=== PATIENT | male | born 1995 | race Caucasian/White ===

== ENCOUNTER 2021-09-13 14:19 | Emergency (ER) | payer BC ==
--- OUTSIDE RECORDS SUMMARY | 2021-09-13 14:22 | XMS REPORT | Continuity of Care Document ---
:1995 Author Organization [facility] t Address [address] [place] [address] Dr. Ferrell [address] [place] [id number] Care Team Providers Name Role Phone JACQUELINE Attending Clinician Unavailable Problems This patient has no known problems. Allergies, Adverse Reactions, Alerts This patient has no known allergies or adverse reactions. Medications This patient has no known medications. Procedures This patient has no known procedures. Encounters Start End Encounter Admission Attending Care Care Encounter Source Date/Time Date/Time Type Type Clinicians Facility Department ID 2021-09-12 2021-09-13 Emergency JACQUELINE [facility] [id number] [address] 00:00:00 00:00:00 [place] Results This patient has no known results.
[2021-09-13 19:47] LABS: Absolute Lymphocytes (CBC) 1.5 K/uL (0.7-4.9); Basophils % 0.4 % (0-1.3); Hematocrit 48.7 % (39.6-49.0); Lymphocytes % 42.7 % (15.3-44.8); MPV 8.4 fL (7.6-11.3); RBC Red Blood Cell Count 5.49 M/uL (4.33-5.43)
[2021-09-13 19:51] LABS: Protime INR 1.09
[2021-09-13] MEDS ORDERED: KETOROLAC 30 MG/ML INJ ONE (19:51)
[2021-09-13 20:23] LABS: ALT/SGPT 39 U/L (12-78); AST/SGOT 26 U/L (15-37); Albumin 3.9 g/dL (3.4-5.0); Alkaline Phosphatase 55 U/L (45-117); BUN Blood Urea Nitrogen 9 mg/dL (7-18); Bicarbonate 29 mmol/L (21-32); Bilirubin Direct < 0.1 mg/dL (0-0.2); Bilirubin Total 0.4 mg/dL (0.2-1.0); Glucose Level 99 mg/dL (74-106); Potassium 3.6 mmol/L (3.5-5.1); Protein, Total 8.5 g/dL (6.4-8.2); Sodium Level 139 mmol/L (136-145)
--- NOTE | 2021-09-13 20:35 | RAD REPORT ---
EXAM DESCRIPTION: CT - Head Brain Wo Cont - 09/13/2021 7:11 pm CLINICAL HISTORY: HEADACHE Headache, drowsiness COMPARISON: <Comparisons> TECHNIQUE: All CT scans are performed using dose optimization technique as appropriate and may inclu de automated exposure control or mA/KV adjustment according to patient size. FINDINGS: No intracranial hemorrhage, hydrocephalus or extra-axial fluid collection.No areas of brai n edema or evidence of midline shift. The paranasal sinuses and mastoids are clear. The calvarium is intact. IMPRESSION: No acute intracranial abnormality.
[2021-09-13 20:46] LABS: Urine Blood Negative (Negative); Urine Glucose Negative (Negative); Urine Protein Negative (Negative)
[2021-09-13 20:57] LABS: Barbiturates NEGATIVE (NEGATIVE); Benzodiazepines NEGATIVE (NEGATIVE); Cocaine NEGATIVE (NEGATIVE); METHAMPHETAM NEGATIVE (NEGATIVE); Methadone NEGATIVE (NEGATIVE); Opiates NEGATIVE (NEGATIVE); Phencyclidine NEGATIVE (NEGATIVE); THC Cannibis NEGATIVE (NEGATIVE)
--- NOTE | 2021-09-13 21:27 | ER ---
Nurse's Notes [facility] Name: Darin Ferris Age: 26 yrs Sex: Male : 1995 Arrival Date: 09/13/2021 Time: 14:21 Bed 15 Private MD: Diagnosis: Anxiety disorder, unspecified Presentation: 09/13 14:42 Chief complaint: Patient states: "I tested positive for COVID 2 days ago at [facility] urgent care. As far as symptoms I feel fine, but I don't know if I am having mental side effects or what, like anxiety. It seems to happen between 8pm and midnight. It seems to be triggered by electronics. I'll get really jittery and then my thoughts start racing and I can't sleep. [facility] and they told me it might be like meningitis, so I went to [facility] yesterday and they did lab work and an EKG and told me it looked okay and sent me home to follow up with neurology, but I can't get in until next week sometime. I do have some neck stiffness and twinges down my back at times. I just can't control my thoughts." Denies SI/ HI. Coronavirus screen: Client denies travel out of the [place] in the last 14 days. Ebola Screen: Patient denies exposure to infectious person. Patient denies travel to an Ebola-affected area in the 21 days before illness onset. Initial Sepsis Screen: Does the patient meet any 2 criteria? No. Patient's initial sepsis screen is negative. Does the patient have a suspected source of infection? No. Patient's initial sepsis screen is negative. Risk Assessment: Do you want to hurt yourself or someone else? Patient reports no desire to harm self or others. Onset of symptoms was September 11, 2021. 14:42 Method Of Arrival: Ambulatory 14:42 Acuity: ROSALINDA 3 ss Triage Assessment: 19:00 General: Appears in no apparent distress. Behavior is calm, cooperative. Pain: Denies mr2 pain. Historical: - Allergies: 14:48 No Known Allergies; ss - Home Meds: 14:48 None [Active]; ss - PMHx: 14:48 None; ss - PSHx: 14:48 R thumb; ss - Immunization history:: Client reports having NOT received the Covid vaccine. - Social history:: Smoking status: Reported history of juuling and/or vaping. Patient/guardian denies using tobacco, the patient reports quitting approximately 3 years ago, Patient/guardian denies using street drugs. Screenin:32 Abuse screen: Denies threats or abuse. Nutritional screening: No deficits noted. tw2 Tuberculosis screening: No symptoms or risk factors identified. Fall Risk None identified. Assessment: 18:37 Reassessment: provider DELORES Arango at bedside at this time. tw2 Vital Signs: 14:42 BP 121 / 80; Pulse 87; Resp 16; Temp 98.5(TE); Pulse Ox 100% on R/A; Weight 108.86 kg; ss Height 6 ft. 2 in. (187.96 cm); Pain 2/10; 18:41 BP 126 / 88; Pulse 81; Resp 17; Pulse Ox 100% on R/A; tw2 21:00 BP 118 / 85; Pulse 80; Resp 17; Temp 98.4; Pulse Ox 99% on R/A; mr2 14:42 Body Mass Index 30.81 (108.86 kg, 187.96 cm) ss ED Course: 14:21 Patient arrived in ED. ds1 14:48 Triage completed. ss 14:48 Arm band placed on right wrist. ss 16:19 Bed in low position. Call light in reach. Adult w/ patient. tw2 16:20 Darrell David PA is PHCP. cp 16:20 Wendy Wall MD is Attending Physician. cp 18:36 Darrell David PA is PHCP. cp 18:36 Wendy Wall MD is Attending Physician. cp 19:02 Darrell Landeros MD is Attending Physician. cp 19:12 CT Head Brain wo Cont In Process Unspecified. EDMS 19:41 Acetaminophen Sent. dh3 19:41 Basic Metabolic Panel Sent. dh3 19:41 CBC with Diff Sent. dh3 19:41 ETOH Level Sent. dh3 19:41 Hepatic Function Sent. dh3 19:41 PT-INR Sent. dh3 19:41 Ptt, Activated Sent. dh3 19:41 Salicylate Sent. dh3 21:00 No provider procedures requiring assistance completed. IV discontinued. mr2 21:34 Jaden Russell, RN is Primary Nurse. mr2 Administered Medications: No medications were administered Outcome: 21:26 Discharge ordered by . cp 21:35 Discharged to home ambulatory. mr2 21:35 Condition: stable 21:35 Discharge instructions given to patient. 22:08 Patient left the ED. mr2 Signatures: Dispatcher [employer] EDME Emily Neumann ds1 Lyla Renae, RN RN Darrell David PA PA Mariana Duenas RN RN [facility] Irene Cruz [facility] Jaden Russell, RN RN mr2
--- NOTE | 2021-09-13 21:27 | EDPHYS ---
Physician Documentation [facility] Name: Darin Ferris Age: 26 yrs Sex: Male : 1995 Arrival Date: 09/13/2021 Time: 14:21 Bed 15 Private MD: ED Physician Darrell Landeros HPI: 09/13 19:05 This 26 yrs old Male presents to ER via Ambulatory with complaints of Mental Evaluation.cp 19:05 Patient is a 26-year-old male who presents to the emergency department with concern for cp anxiety. Patient reports he tested positive for Covid 2 days ago has been having feelings of jitteriness, difficulty sleep, and feeling like his mind is racing. He is not having much upper respiratory type symptoms such as cough fever shortness of breath, but is concerned as this is due to the recent Covid infection. Patient reports over the last 2 nights she is gone to [facility] to be evaluated and had some blood work and released to go home. Patient report denies any suicidal homicidal ideation and is accompanied by his who is concerned but states patient has not voiced that he wants to harm himself or others. Historical: - Allergies: 14:48 No Known Allergies; ss - Home Meds: 14:48 None [Active]; ss - PMHx: 14:48 None; ss - PSHx: 14:48 R thumb; ss - Immunization history:: Client reports having NOT received the Covid vaccine. - Social history:: Smoking status: Reported history of juuling and/or vaping. Patient/guardian denies using tobacco, the patient reports quitting approximately 3 years ago, Patient/guardian denies using street drugs. ROS: 19:10 Constitutional: Negative for fever, poor PO intake. cp 19:10 Eyes: Negative for injury, pain, redness, and discharge. cp 19:10 Cardiovascular: Negative for chest pain. 19:10 Respiratory: Negative for cough, shortness of breath, wheezing. 19:10 Neuro: Negative for altered mental status, headache, weakness. 19:10 Psych: Negative for auditory hallucinations, visual hallucinations, homicidal ideation, suicide gesture, suicidal ideation. 19:10 All other systems are negative. Exam: 19:15 Constitutional: The patient appears in no acute distress, alert, awake, cp non-diaphoretic, non-toxic, well developed, well nourished. 19:15 Head/Face: Normocephalic, atraumatic. cp 19:15 Eyes: Periorbital structures: appear normal, Conjunctiva: normal, no exudate, no injection, Sclera: no appreciated abnormality, Lids and lashes: appear normal, bilaterally. 19:15 ENT: External ear(s): are unremarkable, Nose: is normal, Posterior pharynx: Airway: no evidence of obstruction, patent. 19:15 Neck: ROM/movement: is normal, is supple, no meningismus, no nuchal rigidity. 19:15 Chest/axilla: Inspection: normal, Palpation: is normal, no crepitus, no tenderness. 19:15 Cardiovascular: Rate: normal, Rhythm: regular. 19:15 Respiratory: the patient does not display signs of respiratory distress, Respirations: normal, no use of accessory muscles, no retractions, labored breathing, is not present, Breath sounds: are clear throughout, no decreased breath sounds, no stridor, no wheezing. 19:15 Abdomen/GI: Inspection: abdomen appears normal, Palpation: abdomen is soft and non-tender, in all quadrants. 19:15 Neuro: Orientation: to person, place \T\ time. Mentation: is normal, Cerebellar function: is grossly normal, Motor: moves all fours, strength is normal, Sensation: is normal. 19:15 Psych: Behavior/mood is pleasant, cooperative, Affect is calm, Judgement / Insight is normal. Delusions/hallucinations are not present. 20:03 ECG was reviewed by the Attending Physician. cp Vital Signs: 14:42 BP 121 / 80; Pulse 87; Resp 16; Temp 98.5(TE); Pulse Ox 100% on R/A; Weight 108.86 kg; ss Height 6 ft. 2 in. (187.96 cm); Pain 2/10; 18:41 BP 126 / 88; Pulse 81; Resp 17; Pulse Ox 100% on R/A; tw2 21:00 BP 118 / 85; Pulse 80; Resp 17; Temp 98.4; Pulse Ox 99% on R/A; mr2 14:42 Body Mass Index 30.81 (108.86 kg, 187.96 cm) ss MDM: 16:23 Patient medically screened. cp 21:25 Data reviewed: vital signs, nurses notes. cp 12/24 18:56 Order name: Acetaminophen; Complete Time: 20:37 09/13 20:37 Interpretation: Reviewed. 09/13 18:56 Order name: Basic Metabolic Panel; Complete Time: 20:37 09/13 20:37 Interpretation: Normal except: CRE 1.38; GFR 62. 09/13 18:56 Order name: CBC with Diff; Complete Time: 20:21 09/13 20:21 Interpretation: Normal except: WBC 3.60; RBC 5.49; TORI% 35.2; MN% 19.9; NEUT A 1.3. 09/13 18:56 Order name: ETOH Level; Complete Time: 20:21 09/13 18:56 Order name: Hepatic Function; Complete Time: 20:37 09/13 20:38 Interpretation: Normal except: TP 8.5; GLOB 4.6; A/G 0.8. 09/13 18:56 Order name: PT-INR; Complete Time: 20:21 09/13 18:56 Order name: CT Head Brain wo Cont; Complete Time: 20:37 09/13 20:38 Interpretation: Report reviewed. 09/13 18:56 Order name: Ptt, Activated; Complete Time: 20:21 09/13 20:21 Interpretation: Abnormal: PTT 39.9. 09/13 18:56 Order name: Salicylate; Complete Time: 20:37 09/13 20:38 Interpretation: Reviewed. 09/13 18:56 Order name: Urine Drug Screen; Complete Time: 21:21 09/13 21:21 Interpretation: Reviewed. 09/13 18:56 Order name: EKG; Complete Time: 18:56 09/13 18:56 Order name: EKG - Nurse/Tech 09/13 18:56 Order name: IV Saline Lock; Complete Time: 19:41 09/13 20:46 Order name: Urine Dipstick-Ancillary; Complete Time: 20:47 EDKS 09/13 20:47 Interpretation: Reviewed. 09/13 18:56 Order name: Labs collected and sent; Complete Time: 19:41 09/13 18:56 Order name: Suicide Screening ([place]); Complete Time: 19:41 09/13 18:56 Order name: Urine Dipstick-Ancillary (obtain specimen); Complete Time: 19:41 cp EC:03 Rate is 75 beats/min. Rhythm is regular. NE interval is normal. QRS interval is normal. cp QT interval is normal. T waves are Inverted in lead aVR. Interpreted by me. Reviewed by me. Administered Medications: No medications were administered Disposition Summary: 09/13/21 21:26 Discharge Ordered Location: Home cp Problem: new cp Symptoms: are unchanged cp Condition: Stable cp Diagnosis - Anxiety disorder, unspecified cp Followup: cp - With: Private Physician - When: 2 - 3 days - Reason: Recheck today's complaints Discharge Instructions: - Generalized Anxiety Disorder, Adult cp - Managing Anxiety, Adult cp - Discharge Summary Sheet cs9 Forms: - Medication Reconciliation Form cp - Thank You Letter cp - Antibiotic Education cp - Prescription Opioid Use cp Prescriptions: - Vistaril 50 mg Oral capsule - take 1 capsule by ORAL route 4 times per day As needed for anxiety; 30 capsule; cp Refills: 0, Product Selection Permitted Addendum: 09/17/2021 12:42 Co-signature as Attending Physician, Darrell Landeros MD I agree with the assessment and c abraham plan of care. Signatures: Dispatcher [employer] EDKS Darrell Landeros MD MD cha Smirch, Shelby, RN RN ss Darrell David PA PA cp Corrections: (The following items were deleted from the chart) 09/14 22:08 22:05 Patient is a 26-year-old male who presents to the emergency department with cp concern for anxiety. Patient reports he tested positive for Covid 2 days ago has been having feelings of. cp
[2021-09-13 22:23] VITALS: BP 118/85; TEMP 98.4; O2SAT 99
== END 2021-09-13 22:08 | disposition home or self-care (01) ==
LOC: ER 14:19
DX: F41.9 Anxiety disorder, unspecified (principal); Z86.16 Personal history of COVID-19
CPT/HCPCS: 36415; 70450; 80048; 80076; 80307; 80320; 80329; 81003; 85025; 85610; 85730; 93005; 99283